=== PATIENT | female | born 1960 | race Caucasian/White ===

== ENCOUNTER → 2020-01-12 | Day surgery (SDC) | payer BC ==
--- NOTE | 2020-01-12 23:43 | OP ---
DATE OF OPERATION: 01/12/2020 PREOPERATIVE DIAGNOSIS: Left breast mass, 2 o'clock, 6 cm from the nipple. POSTOPERATIVE DIAGNOSIS: Left breast mass, 2 o'clock, 6 cm from the nipple. PROCEDURE: Left breast ultrasound guided core biopsy and clip placement. ANESTHESIA: Local. ATTENDING SURGEON: Kimberly Virk MD. ESTIMATED BLOOD LOSS: Minimal. COMPLICATIONS: None. DESCRIPTION OF PROCEDURE: Patient was made aware of the risks and benefits of the procedure and consented. She was placed in supine position. Under sterile conditions with 2% lidocaine for local anesthesia, a small nicole was made in the skin using a 10 gauge suction biopsy device, via lateral approach, multiple cores were obtained and submitted to pathology. Likewise under ultrasound guidance, a U-shaped clip was placed into the biopsy region. Well tolerated by patient. Steri-Strips and a sterile bandage were then applied. Patient was then submitted for postprocedure mammogram. We will contact her with the results of the biopsy. KIMBERLY VIRK M.D. [id number]
--- NOTE | 2020-01-14 16:25 | PATH ---
Surgical Pathology Report Patient Name: MANFRED EDMOND [facility]. Rec. #: [id number] /Age/Gender: 1960 (Age: 59) / F Account: [id number] Location: Taken: 01/12/2020 Received: 01/12/2020 Reported: 01/14/2020 Physicians: Kimberly Virk M.D. Specimen(s) Received LEFT BREAST CORE BIOPSY 2:00 6 CM FN Clinical History Left breast core biopsy Final Diagnosis BREAST, LEFT, 2:00, 6 CM FN, CORE BIOPSY: FOCAL ATYPICAL DUCTAL HYPERPLASIA (ADH), FLAT EPITHELIAL ATYPIA (FEA), COLUMNAR CELL CHANGE AND CYSTIC APOCRINE METAPLASIA WITH ASSOCIATED CALCIFICATIONS. Note: E-Cadherin immunostain (performed at [facility]) was used in the evaluation of this case. Electronically Signed Tiffany Batista M.D. Gross Description Received in formalin labeled "left core biopsy 2:00, 6 cmfn," is a 2.0 x 1.8 x 0.3 cm aggregate of lira-yellow, irregular to cylindrical portions of fibroadipose tissue. The formalin is filtered and the specimen is entirely submitted in one cassette. Time to formalin fixation: Not given, (presumed immediate). Total formalin fixation time: Approximately 29 hours. 01/13/2020 [facility]01/13/2020
== END | disposition home or self-care (01) ==
LOC: FRADUS-SUR 12:43
PROVIDERS: ATTEND Surgery Surgical Oncology
PROC: 0HBU3ZX Excision of Left Breast, Percutaneous Approach, Diagnostic (ICD-10-PCS; principal; 2020-01-12)
DX: N60.12 Diffuse cystic mastopathy of left breast (principal); N60.92 Unspecified benign mammary dysplasia of left breast; N64.89 Other specified disorders of breast; N63.21 Unspecified lump in the left breast, upper outer quadrant
CPT/HCPCS: 19083; 77065-TC; 87899; 88305-TC; 88342-TC; A4648

== ENCOUNTER 2020-02-10 08:41 | Day surgery (SDC) | payer BC ==
[2020-02-03 16:48] VITALS: BMI 27.3
--- NOTE | 2020-02-04 11:19 | HP ---
Admitting History and Physical - Primary Care Physician PCP: Kimberly Virk - Admission Chief Complaint: Left breast atypia History of Present Illness: Patient is a 59 yo female who was noted to have a suspicious lesion at the 2 o'clock position on mammo and US on 01/08. The patient underwent a core bx on 01/11 which was c/w atypical ductal hyperplasia. The MRI done 01/22 was c/w known ADH however an area just anterior to this was seen on mammo for which a bx was recommended as well. The patient is now to undergo a wide excision to evaluate the areas of asymmetry as well. History Source: Patient Limitations to Obtaining History: No Limitations - Past Medical History Renal/: Yes: Renal Calculi (h/o of extraction) - Past Surgical History Additional Past Surgical History: rhinoplasty myomectomy (2008) - Smoking History Smoking history: Former smoker Have you smoked in the past 12 months: No If you are a former smoker, when did you quit?: 2009 Home Medications - Allergies Allergies/Adverse Reactions: Allergies Allergy/AdvReac Type Severity Reaction Status Date / Time No Known Allergies Allergy Verified 02/03/20 16:40 - Home Medications Home Medications: Ambulatory Orders NK [No Known Home Medication] 02/03/20 Family Medical History Family Hx Cancer: Grandfather (maternal) (melanoma and renal cancer), Father (prostate cancer at 65), Brother (prostate cancer x 1 and lung cancer x 1) Review of Systems - Review of Systems Constitutional: reports: No Symptoms Cardiovascular: reports: No Symptoms Respiratory: reports: No Symptoms Physical Examination Constitutional: Yes: Well Nourished, Calm Breast(s): Yes: Other (Symmetrical without skin changes or nipple discharge note d. Breast tissue is diffusely nodular without suspicious masses or adenopathy noted.) Problem List - Problems (1) Atypical hyperplasia of left breast Code(s): N60.92 - UNSPECIFIED BENIGN MAMMARY DYSPLASIA OF LEFT BREAST Assessment/Plan Plan: Left breast WE with NL
[2020-02-10] MEDS ORDERED: BUPIVACAINE HCL/PF 2.5 MG/ML - 30 ML VIAL IJ ONE (09:38)
[2020-02-10] MEDS ORDERED: PROPOFOL 20 ML ONE (10:07)
[2020-02-10] MEDS ORDERED: MIDAZOLAM HCL 2 MG/2 ML SINGLE DOSE VIAL ONE (10:08)
[2020-02-10] MEDS ORDERED: SUCCINYLCHOLINE CHLORIDE 200 MG/10 ML SYRINGE ONE (10:08)
[2020-02-10] MEDS ORDERED: BUPIVACAINE HCL/PF 0.25% (2.5MG/ML) 10 ML VIAL ONE (10:41)
[2020-02-10] MEDS ORDERED: LIDOCAINE HCL 1%, 10 MG/ML (20ML VIAL) ONE (10:42)
[2020-02-10] MEDS ORDERED: ONDANSETRON 4 MG/2 ML VIAL ONE (11:05)
[2020-02-10] MEDS ORDERED: DEXAMETHASONE SOD PHOSPHATE 4 MG/1 ML VIAL ONE (11:05)
[2020-02-10] MEDS ORDERED: ceFAZolin SODIUM 1 GM VIAL ONE (11:09)
[2020-02-10] MEDS ORDERED: EPHEDRINE SULFATE/0.9% NACL/PF 50 MG/10 ML SYRINGE NR ONE (11:11)
[2020-02-10] MEDS ORDERED: ePHEDrine SULFATE 50 MG/1 ML AMPULE ONE (11:11)
[2020-02-10] MEDS ORDERED: BUPIVACAINE HCL/PF 0.25% (2.5MG/ML) 10 ML VIAL IJ ONE (11:33)
[2020-02-10] MEDS ORDERED: KETOROLAC TROMETHAMINE 30 MG/1 ML VIAL ONE (11:42)
[2020-02-10] MEDS ORDERED: ONDANSETRON 4 MG/2 ML VIAL IVPUSH PRN ×2 (11:56→14:16)
[2020-02-10] MEDS ORDERED: KETOROLAC TROMETHAMINE 30 MG/1 ML VIAL IVPUSH PRN (11:56)
[2020-02-10] MEDS ORDERED: DEXTROSE 5%-0.45% SALINE 1,000 ML IV SCH (12:00)
[2020-02-10 12:18] VITALS: TEMP 97.7
[2020-02-10 13:23] VITALS: BP 128/74; PULSE 76
[2020-02-10] MEDS ORDERED: oxyCODONE HCL 5 MG TABLET PO PRN (14:16)
[2020-02-10] MEDS ORDERED: LACTATED RINGERS SOLUTION 1,000 ML IV SCH (14:30)
--- NOTE | 2020-02-11 08:12 | OP ---
DATE OF OPERATION: 02/10/2020 PREOPERATIVE DIAGNOSIS: Left breast atypical ductal hyperplasia. POSTOPERATIVE DIAGNOSIS: Left breast atypical ductal hyperplasia. PROCEDURE: Left mammographically localized wide excision. ANESTHESIA: General. ATTENDING SURGEON: Keara Virk MD EMBEDDED SOFTWARE ENGINEER: ALLIE Dan ESTIMATED BLOOD LOSS: Minimal. COMPLICATIONS: None. PROCEDURE: Patient was made aware of the risks and benefits of the procedure and consented. Preoperatively patient went to the radiology suite where a needle and wire were placed next to the index lesion. She was then placed in a supine position and, after general anesthesia was induced, the patient was intubated. The operative site was prepped and draped in the usual sterile fashion. Curvilinear incision was made adjacent to the wire using electrocautery. Thick skin flaps were made. The needle was withdrawn through the puncture site and the wire through the wound. Tissues around the wire were then sharply excised and submitted with a short suture superior, long suture lateral. Specimen radiograph confirmed the presence of the index lesion and submitted to Pathology. The wound was then copiously irrigated with normal saline. Hemostasis maintained by electrocautery. The wound was closed with deep interrupted 3-0 Vicryl followed by running subcuticular 4-0 Monocryl. Steri-Strips, sterile dressing and a compression bra were then applied, and the patient having tolerated the procedure well was transferred to the recovery room in excellent condition. KEARA VIRK M.D. [id number]
--- NOTE | 2020-02-16 11:19 | PATH ---
Surgical Pathology Report Patient Name: MANFRED EDMOND [facility]. Rec. #: [id number] /Age/Gender: 1960 (Age: 59) / F Account: [id number] Location: [facility] Taken: 02/10/2020 Received: 02/10/2020 Reported: 02/16/2020 Physicians: Kimberly Virk M.D. Specimen(s) Received LEFT BREAST WIDE EXCISION Clinical History ADH Final Diagnosis BREAST, LEFT, WIDE EXCISION: DUCTAL CARCINOMA IN SITU (DCIS), MICROPAPILLARY AND FLAT TYPE, INTERMEDIATE NUCLEAR GRADE, WITH FOCAL NECROSIS AND FEW ASSOCIATED CALCIFICATIONS. DCIS IS PRESENT IN EIGHT OF ELEVEN SLIDES (8/11). DCIS IS FOCALLY CLOSE TO (< 1 MM) THE SUPERIOR, INFERIOR AND MEDIAL MARGINS. REMAINING BREAST TISSUE SHOWS LOBULAR CARCINOMA IN SITU (LCIS, CLASSICAL TYPE), FLAT EPITHELIAL ATYPIA (FEA), COLUMNAR CELL CHANGE, CYSTIC AND PAPILLARY APOCRINE METAPLASIA AND FEW ASSOCIATED CALCIFICATIONS. (SEE NOTE) PRIOR BIOPSY SITE CHANGES ARE PRESENT. PATHOLOGIC STAGE (pTNM): pTis (DCIS) pNx. SEE ALSO DCIS CASE SUMMARY BELOW. Note: E-cadherin immunostain (performed at [facility] on blocks 3&4) is negative in the foci of LCIS, which supports lobular phenotype. Case discussed with Dr. Virk on 02/16/20. Comments DCIS of the Breast: Surgical Pathology Cancer Case Summary (Based on AJCC TNM 8 th edition) Procedure _X_ Excision (less than total mastectomy) Specimen Laterality _X_ Left Size (Extent) of DCIS Estimated size (extent) of DCIS: at least (millimeters) 6 mm, microscopically Number of blocks with DCIS: 8 Number of blocks examined: 11 Note: The size (extent) of DCIS is an estimation of the volume of breast tissue occupied by DCIS. Histologic Type _X_ Ductal carcinoma in situ Architectural Patterns _X_ Micropapillary _X_ Flat Nuclear Grade _X_ Grade II (intermediate) Necrosis _X_ Present, focal (small foci or single cell necrosis) Margins _X_ Uninvolved by DCIS Distance from closest margin (millimeters): < 1mm from superior, inferior & medial margins Regional Lymph Nodes _X_ No lymph nodes submitted Pathologic Stage Classification (pTNM, AJCC 8th Edition) Primary Tumor (pT) _X_ pTis (DCIS): Ductal carcinoma in situ Regional Lymph Nodes (pN) _X_ pN0 Microcalcifications _X_ Present in DCIS _X_ Present in nonneoplastic tissue Biomarker Studies Results of ER and DC studies performed on this specimen (block1) at [facility] are as follows: ER (clone [id number] mouse monoclonal antibody by [employer]): _X_ Positive: > 95 % nuclear staining with strong intensity PgR (clone16 mouse monoclonal antibody by [employer]): _X Positive: ~30 % nuclear staining with strong intensity Positive and negative controls (internal if applicable) show appropriate results. Formalin fixation and cold ischemic times are within current ASCO/CAP recommendations for ER, DC and Her2 testing. Electronically Signed Tiffany Batista M.D. Gross Description Received in formalin, labeled "left breast, wide excision," is a 3.2 x 2.8 x1.8 cm. lira-yellow, irregular, portion of fibroadipose tissue with a needle localization wire present. There is a short suture marking the superior aspect and a long suture marking the lateral aspect, per the surgeon. There is no skin present. The specimen is inked as follows: superior and lateral blue; inferior green; medial yellow; anterior red; deep black. The specimen is serially sectioned from medial to lateral. Sectioning reveals a central, hemorrhagic focus the surrounding area of dense fibrosis. No mass lesion is identified. The specimen is entirely submitted in eleven cassettes as follows: 7-4-cfrubyzyukd focus and surrounding fibrosis with anterior, inferior and superior margins; 5-9-ymqgyxdeu tissue with superior, inferior and deep margins; 8, 9-medial margin; 10-11: lateral margin. Time to formalin fixation: 21 minutes Total formalin fixation time: Approximately 31 hours AE02/13/2020 [facility]02/13/2020
== END 2020-02-10 13:32 | disposition home or self-care (01) ==
LOC: FASU 08:41
PROVIDERS: ATTEND Surgery Surgical Oncology
PROC: 0HBU0ZX Excision of Left Breast, Open Approach, Diagnostic (ICD-10-PCS; principal; 2020-02-10 11:17)
DX: D05.12 Intraductal carcinoma in situ of left breast (principal); N64.89 Other specified disorders of breast; N60.12 Diffuse cystic mastopathy of left breast; Z80.8 Family history of malignant neoplasm of other organs or systems; Z87.891 Personal history of nicotine dependence; N60.92 Unspecified benign mammary dysplasia of left breast
CPT/HCPCS: 19281; 76098-TC-FY; 88307-TC; 88341-TC; 88342-TC; 94760

== ENCOUNTER → 2020-02-24 | Day surgery (SDC) | payer BC ==
--- NOTE | 2020-02-18 15:21 | HP ---
Admitting History and Physical - Primary Care Physician PCP: Kimberly Virk - Admission Chief Complaint: Left breast cancer DCIS History of Present Illness: 59 tammie old postmenapausal female with US core biopsy left breast showing atypia (/2019 left breast wide excision path showed DCIS ER/W[place]+ with close margins superior inferior and medial. needs re excision. History Source: Patient Limitations to Obtaining History: No Limitations - Past Medical History Renal/: Yes: Renal Calculi (h/o of extraction) Endocrine: Yes: Other (low testosterone) - Past Surgical History Additional Past Surgical History: rhinoplasty renal stone extraction myomectomy - Smoking History Smoking history: Former smoker Have you smoked in the past 12 months: No If you are a former smoker, when did you quit?: 2009 Home Medications - Allergies Allergies/Adverse Reactions: Allergies Allergy/AdvReac Type Severity Reaction Status Date / Time No Known Allergies Allergy Verified 02/03/20 16:40 - Home Medications Home Medications: Ambulatory Orders Losartan Potassium 25 mg PO DAILY 02/10/20 Oxycodone HCl/Acetaminophen [Percocet 5-325 mg Tablet -] 1 - 2 tab PO Q6H #15 tablet MDD 6 02/10/20 Family Medical History Family Hx Cancer: Grandfather (maternal) (melanoma and renal cancer), Father (prostate cancer at 65), Brother (prostate cancer x 1 and lung cancer x 1) Physical Examination Constitutional: Yes: Well Nourished Breast(s): Yes: Other (left breast well healed incision no infectionor hematoma) Problem List - Problems (1) Ductal carcinoma in situ (DCIS) of left breast Problems reviewed: Yes Code(s): D05.12 - INTRADUCTAL CARCINOMA IN SITU OF LEFT BREAST Assessment/Plan Left breast wide excision for positive margins
[2020-02-23 09:02] VITALS: BMI 27.3
[~2020-02-24] MED LIST: BUPIVACAINE HCL/PF 0.25% (2.5MG/ML) 10 ML VIAL IJ ONE; BUPIVACAINE HCL/PF 0.25% (2.5MG/ML) 10 ML VIAL ONE; DEXTROSE 5%-0.45% SALINE 1,000 ML IV SCH; KETOROLAC TROMETHAMINE 30 MG/1 ML VIAL IVPUSH PRN; LACTATED RINGERS SOLUTION 1,000 ML IV SCH; LIDOCAINE HCL 1% PRESERVATIVE FREE - 30ML VIAL IJ ONE; LIDOCAINE HCL 1%, 10 MG/ML (20ML VIAL) ONE; LIDOCAINE HCL 2% 100 MG/5 ML DISP.SYRIN ONE; MIDAZOLAM HCL 2 MG/2 ML SINGLE DOSE VIAL ONE; ONDANSETRON 4 MG/2 ML VIAL IVPUSH PRN; PROPOFOL 20 ML ONE; oxyCODONE HCL 5 MG TABLET PO PRN
[2020-02-24 10:22] VITALS: TEMP 97.6
[2020-02-24 11:05] VITALS: PULSE 87
[2020-02-24 11:10] VITALS: BP 151/91
--- NOTE | 2020-02-24 14:34 | OP ---
DATE OF OPERATION: 02/24/2020 PREOPERATIVE DIAGNOSIS: Left breast ductal carcinoma in situ. POSTOPERATIVE DIAGNOSIS: Left breast ductal carcinoma in situ. PROCEDURE: Left partial mastectomy, reexcision. ANESTHESIA: General intubated. ATTENDING SURGEON: Keara Virk MD ENTRY LEVEL PROGRAMMER: ALLIE Dan ESTIMATED BLOOD LOSS: Minimal. COMPLICATIONS: None. PROCEDURE: Patient was made aware of the risks and benefits of the procedure and consented. She was placed in a supine position. After general anesthesia was induced the patient was intubated. The operative site was prepped and draped in usual sterile fashion. The prior incision was opened up revealing a prior excision cavity. This was drained of a seroma fluid and additional segments were sharply taken superior, medial and inferior with clips applied to the new margins. The wound was then copiously irrigated with normal saline. Hemostasis maintained with electrocautery. The wound was then closed with deep 3-0 Vicryl followed by running subcuticular 4-0 Monocryl. Dermabond, sterile dressing and compression bra were then applied and the patient, having tolerated the procedure well, was transferred to the recovery room in excellent condition. KEARA VIRK M.D. [id number]
--- NOTE | 2020-03-01 09:53 | PATH ---
Surgical Pathology Report Patient Name: MANFRED EDMOND [facility]. Rec. #: [id number] /Age/Gender: 1960 (Age: 59) / F Account: [id number] Location: [facility] Taken: 02/24/2020 Received: 02/24/2020 Reported: 03/01/2020 Physicians: Kimberly Virk M.D. Specimen(s) Received A: LEFT BREAST SUPERIOR MARGIN B: LEFT BREAST MEDIAL MARGIN C: LEFT BREAST INFERIOR MARGIN Clinical History DCIS left breast Final Diagnosis A. breast, left, superior margin, excision: No residual ductal carcinoma in situ (DCIS) Is identified. LOBULAR CARCINOMA IN SITU (LCIS, CLASSICAL TYPE), focal atypical ductal hyperplasia (adh), focal flat epithelial atypia (FEA), cystic apocrine metaplasia, columnar cell change and few associated calcifications. Prior biopsy site changes are present. B. breast, left, medial margin, excision: LOBULAR CARCINOMA IN SITU (LCIS, CLASSICAL TYPE), atypical ductal hyperplasia (adh), flat epithelial atypia (FEA), cystic apocrine metaplasia, columnar cell change and associated calcifications. Prior biopsy site changes are present. C. breast, left, inferior margin, excision: No residual ductal carcinoma in situ (DCIS) Is identified. ATYPICAL DUCTAL HYPERPLASIA (ADH), FLAT epithelial atypia (FEA), focal LOBULAR CARCINOMA IN SITU (LCIS, classical type), columnar cell change, cystic apocrine metaplasia, usual ductal hyperplasia (UDH) AND associated calcifications. Prior biopsy site changes are present. Electronically Signed Tiffany Batista M.D. Gross Description A. Received in formalin labeled "left breast superior margin," is a 4.0 x 2.8 x 1.3 cm portion of fibroadipose tissue with a clip marking the new margin, per the surgeon. The new margin is inked purple and the specimen is serially sectioned. The specimen is entirely and sequentially submitted in 6 cassettes. B. Received in formalin labeled "left breast medial margin," is a 3.5 x 3.3 x 1.1 cm portion of fibroadipose tissue with a clip marking the new margin, per the surgeon. The new margin is inked purple and the specimen is serially sectioned. The specimen is entirely and sequentially submitted in 6 cassettes. C. Received in formalin labeled "left breast inferior margin," is a 3.3 x 3.1 x 0.8 cm portion of fibroadipose tissue with a clip marking the new margin, per the surgeon. The new margin is inked purple and the specimen is serially sectioned. The specimen is entirely and sequentially submitted in 3 cassettes. Time to formalin fixation: 4 minutes Total formalin fixation time: Approximately 33 hours. 02/25/2020 [facility]02/25/2020
== END | disposition home or self-care (01) ==
LOC: FASU 07:00
PROVIDERS: ATTEND Surgery Surgical Oncology
PROC: 0HBU0ZZ Excision of Left Breast, Open Approach (ICD-10-PCS; principal; 2020-02-24 09:04)
DX: D05.12 Intraductal carcinoma in situ of left breast (principal); Z87.891 Personal history of nicotine dependence
CPT/HCPCS: 88307-TC; 94760